=== PATIENT | male | born 1995 | race African-American/Black ===

== ENCOUNTER 2022-06-18 15:42 | Emergency (ER) | payer OTHER ==
[~2022-06-18] VITALS: Ht 175.3 cm; Wt 81.6 kg
[2022-06-18 16:04] VITALS: BP 145/94
--- NOTE | 2022-06-18 16:19 | NUR ---
26 years old male walk in to er c/o lower back pain denies any injury.
[2022-06-18] MEDS ORDERED: KETOROLAC 30 MG/ML VIAL IM ONE (16:25)
[2022-06-18] MEDS ORDERED: DEXAMETHASONE 10 MG/ML VIAL IM ONE (16:25)
[2022-06-18] MEDS ORDERED: diazePAM 5 MG TAB PO ONE (16:25)
[2022-06-18] MEDS ORDERED: diazePAM 5 MG TAB ONE (17:03)
[2022-06-18] MEDS ORDERED: DEXAMETHASONE 10 MG/ML VIAL ONE (17:03)
[2022-06-18] MEDS ORDERED: KETOROLAC 30 MG/ML VIAL ONE (17:03)
[2022-06-18] MEDS ORDERED: METH-1681 PO (18:30)
[2022-06-18] MEDS ORDERED: IBUP-2213 PO (18:30)
[2022-06-18 18:38] VITALS: BP 130/90
--- NOTE | 2022-06-18 18:53 | NUR ---
patient condition stable d/c home with instructions after care reviewed understood left er via self ambulatory with steady gait no pain.
== END 2022-06-18 18:50 | disposition home or self-care (01) ==
LOC: MED 15:42
DX: M54.50 Low back pain, unspecified (principal); M54.32 Sciatica, left side; F17.210 Nicotine dependence, cigarettes, uncomplicated; Z79.899 Other long term (current) drug therapy
CPT/HCPCS: 72100; 96372; 99284; J1100; J1885